=== PATIENT | male | born 1940 | race Caucasian/White ===

== ENCOUNTER 2022-03-01 16:28 | Emergency (ER) | payer MEDICARE, OTHER, SELFPAY ==
[2022-03-01 16:30] VITALS: BP 88/55; PULSE 72; RESP 14; TEMP 36.3; O2SAT 96
[2022-03-01 17:02] VITALS: BP 83/57; PULSE 71; RESP 16; O2SAT 97
--- NOTE | 2022-03-01 17:47 | EDS_ITS ---
HPI History of Present Illness Chief Complaint: Weakness Informant: patient and family Narrative Narrative: Brought in by EMS from the [facility] the [facility] for near syncopal episodes. He has been at the [facility] the [facility] last 2 days. He ambulates without assistance. States yesterday a lot ambulate lesion increasing weakness today more fatigued therefore was more using a wheelchair for transport able to get up and move around. Around 3 PM sitting noted changes to vision with varus and lightheaded symptoms there is no chest pains or shortness of breath. Chronic cough with productive sputum with asthma history no tobacco history no home oxygen. No urinary symptoms. No recent vomiting or diarrhea. States last 2 days and not drink much water. He does have cardiac history with bypass along with paroxysmal A. fib with cardiac ablation in the past. Currently symptoms resolved. Prior similar symptoms: No PFSH PFSH Medical History A-fib Acid reflux Asthma Hernia History of prostate cancer Hypertension Allergy/AdvReac Type Severity Reaction Status Date / Time No Known Allergies Allergy Verified 03/01/22 16:29 Surgical History History of hernia repair History of prior ablation treatment History of sinus surgery Status post double vessel coronary artery bypass Social History Smoking Status: Former smoker ROS ROS ED Constitutional Constitutional ED: Denies chills, fever(s) or sweats Eyes Eyes: Denies change in vision ENT ENT ED: Denies dysphagia or sore throat Cardiovascular Cardiovascular: Reports other Details: Lightheaded symptoms ; Denies chest pain, leg edema, palpitations or racing heartbeat Respiratory/Chest Respiratory/Chest: Denies cough, dyspnea or dyspnea on exertion Gastrointestinal Gastrointestinal: Denies abdominal pain, diarrhea, nausea or vomiting Genitourinary Genitourinary ED: Denies dysuria, hematuria or urinary frequency Musculoskeletal Musculoskeletal: Denies back pain, extremity pain or neck pain Integumentary Denies rash or wounds Neurologic Neurologic: Denies headache(s), paresthesias or weakness EXAM Physical Exam Const Vital Signs: 03/01/22 16:30 03/01/22 17:02 03/01/22 17:06 Temperature 97.4 F L Temperature Source Temporal Pulse Rate 72 71 Respiratory Rate 14 16 Respiratory Effort Normal Respiratory Pattern Normal Blood Pressure 88/55 L 83/57 L Blood Pressure Mean 66 65 Pulse Ox 96 97 Oxygen Delivery Method Room Air Room Air 03/01/22 20:27 03/01/22 20:28 Temperature Temperature Source Pulse Rate 74 74 Respiratory Rate 16 16 Respiratory Effort Respiratory Pattern Blood Pressure 91/67 91/67 Blood Pressure Mean 75 Pulse Ox 97 97 Oxygen Delivery Method Room Air Positive well nourished and well developed General Appearance ED: well developed and NAD HEENT HEENT Narrative: Mild dry mucosal membranes. normocephalic and atraumatic Eyes PERRL, EOMs intact bilaterally and conjunctivae normal General Eye ED: Yes normal appearance of both eyes Neck no lymphadenopathy and supple General: Negative for tenderness Chest Wall Chest: Negative for tenderness Resp normal respiratory effort and normal air movement Effort and Inspection: symmetric chest movement; Negative for respiratory distress Cardio regular rate, regular rhythm and no murmurs Peripheral Pulses: pulses 2+ throughout GI normal to inspection, nondistended, normoactive bowel sounds and non-tender Palpation: Negative for guarding or rebound tenderness present Back/Spine no CVA tenderness and no thoracic nor lumbar tenderness Extremity normal to inspection General Extremety ED: Negative for edema or tenderness General Extremity: Negative for edema Neuro oriented x3 and no sensory deficits noted Sensorium / Orientation: awake and alert Skin no rashes or lesions noted and no wounds MDM MDM MDM Narrative Medical decision making narrative: Patient nontoxic slight dry mucosal membranes. History of being out all day decreased p.o. intake concerns for orthostatic near syncope. Is given IV fluids. Laboratory studies were checked. He is feeling better on reevaluation. He ambulated department with no issues. Discussed continuing oral fluids for hydration. Follow-up as an outpatient with return precautions. All questions were answered. 0010: Evaluate patient's record initial thought his creatinine was normal, however reevaluation noted creatinine about 2.99 with BUN of 64 potassium 4.9. There is no old for comparison in the system. I called and discussed with his spouse over the phone as he is sleeping, states he is doing well. He has not been told of any renal insufficiency in the past. I encourage continued oral fluids over the next day. They leave back home to [place] on Wednesday. Discussed monitoring for worsening symptoms or decreased urine output. Discussed for recurrent symptoms to return back to the ED. Otherwise if feeling fine he can have his labs rechecked when he gets back home. Discussed the values and numbers with the patient and spouse. All questions were answered. Lab Data Attestation: I reviewed the patient's lab results. Labs: Laboratory Results - last 24 hr 03/01/22 03/01/22 17:30 17:30 WBC 8.9 RBC 4.00 L Hgb 12.9 L Hct 39.8 L MCV 99.5 H MCH 32.3 H MCHC 32.4 RDW Std Deviation 49.1 H RDW Coeff of Opal 13.2 Plt Count 208 MPV 9.7 Immature Gran % (Auto) 1.000 H Neut % (Auto) 75.2 H Lymph % (Auto) 11.1 L Harper % (Auto) 9.0 Eos % (Auto) 3.3 Baso % (Auto) 0.4 Absolute Neuts (auto) 6.7 Absolute Lymphs (auto) 0.99 Nucleated RBC % 0 Sodium 138 Potassium 4.9 Chloride 104 Carbon Dioxide 28.0 Anion Gap 6 BUN 64 H Creatinine 2.99 H Estim Creat Clear Calc 17.81 Est GFR (MDRD) Af Amer 26 L Est GFR (MDRD) Non-Af 22 L BUN/Creatinine Ratio 21.4 H Glucose 91 Calcium 9.2 Total Bilirubin 0.40 AST 11 L ALT 28 Alkaline Phosphatase 70 Total Protein 7.1 Albumin 3.4 Globulin 3.7 Albumin/Globulin Ratio 0.9 Radiography Diagnostic Testing: Clinical Impression(s) from Imaging Studies Chest X-Ray 03/01/22 18:13 IMPRESSION: Large hiatal hernia. Electronically Signed: Mark Oneal MD at 18:21 EDT , Discharge Plan Triage Chief Complaint: Weakness ED Provider: David Jaimes Dx/Rx/DC Orders Clinical Impression: Near syncope, Dehydration, CYNTHIA (acute kidney injury) Instructions: Dehydration, ED Near-Fainting, Uncertain Cause Primary Care Provider: Care Physician,No Primary Referrals: Care Physician,No Primary [Primary Care Provider] - Activity Restrictions/Additional Instructions: Clinical dehydration. Continue oral fluids at home. Follow-up with your doctor. Return if any worsening symptoms. Disposition Disposition: Home, Self Care Discharge Date/Time: 03/01/22 20:34
[2022-03-01 17:57] LABS: Absolute Lymphocyte Count 0.99 X10^3/uL (0.83-4.51); Absolute Neutrophil Count 6.7 X10^3/uL (2.0-7.7); Basophil# 0.04 X10^3/uL; Basophil% 0.4 % (0-1); Eosinophil# 0.29 X10^3/uL; Eosinophils% 3.3 % (0-5); Hematocrit 39.8 % (40-54); Hemoglobin 12.9 g/dL (13.0-16.5); Lymphocyte # 0.99 X10^3/ul (0.83-4.51); Lymphocyte % 11.1 % (19-41); Mean Corp Hgb Conc 32.4 g/dL (32-36); Mean Corpuscular Hgb 32.3 pg (27.0-32.0); Mean Corpuscular Volume 99.5 fL (80-94); Mean Platelet Vol. 9.7 fl (6.2-12.0); NRBC Flagged by Analyzer 0 % (0-5); Neutrophil # 6.68 X10^3/uL (2.7-7.7); Neutrophil % 75.2 % (47-70); Platelet Count 208 K/mm3 (150-450); RBC Distribution Width CV 13.2 % (11.6-14.6); RBC Distribution Width SD 49.1 fl (35.1-43.9); White Blood Count 8.9 K/mm3 (4.4-11.0)
[2022-03-01] MEDS: 0.9% Normal Saline 1,000 ML 1000 ML IV (18:07)
--- NOTE | 2022-03-01 18:13 | RAD_ITS ---
STUDY: X-RAY CHEST REASON FOR EXAM: Male, 81 years old. cough TECHNIQUE: PA and lateral views of the chest. COMPARISON: None. FINDINGS: Status post median sternotomy. The lungs are clear and expanded. There is no demonstrated pleural abnormality. Normal size heart. Large hiatal hernia with an air-fluid level. Normal visualized pulmonary arteries. Normal visualized aortic arch and descending thoracic aorta. Normal visualized thoracic spine. Normal visualized ribs, clavicles, and shoulders. There is no demonstrated abnormality of the visualized soft tissue structures of the upper abdomen. RAD/Chest PA and Lateral IMPRESSION: Large hiatal hernia. Electronically Signed: Mark Oneal MD at 18:21 EDT ,
[2022-03-01 18:15] LABS: ALB/GLOB Ratio 0.9 RATIO (0.9-2.4); AST(SGOT) 11 U/L (15-37); Alanine Aminotransfer ALT/SGPT 28 U/L (16-61); Albumin, Serum 3.4 g/dL (3.2-5.0); Alkaline Phosphatase 70 U/L (45-117); Anion Gap 6 (5-15); BUN 64 mg/dL (7-18); BUN/Creat Ratio 21.4 RATIO (10-20); Calcium,Total 9.2 mg/dL (8.5-10.1); Chloride 104 mmol/L (98-107); Creatinine, Serum 2.99 mg/dL (0.70-1.30); EST Glomerular Filtration Rate 22 mL/min (>60); Est Glom Filt Rate - Afr Amer 26 mL/min (>60); Estimated Creatinine Clearance 17.81 ml/min; Globulin 3.7 g/dL (2.2-4.2); Glucose 91 mg/dL (74-106); Potassium 4.9 mmol/L (3.5-5.1); Protein, Total 7.1 g/dL (6.4-8.2); Sodium Level 138 mmol/L (136-145)
[2022-03-01 20:27] VITALS: BP 91/67; PULSE 74; RESP 16; O2SAT 97
[2022-03-01 20:28] VITALS: BP 91/67; PULSE 74; RESP 16; O2SAT 97
== END 2022-03-01 20:34 | disposition home or self-care (01) ==
PROVIDERS: Emergency Provider Emergency Medicine; Visit Provider Emergency Medicine
DX: R55 Syncope and collapse (principal); I48.0 Paroxysmal atrial fibrillation; E86.0 Dehydration; I10 Essential (primary) hypertension; Z87.891 Personal history of nicotine dependence; R05.3 Chronic cough; Z95.1 Presence of aortocoronary bypass graft; Z85.46 Personal history of malignant neoplasm of prostate
CPT/HCPCS: 71046; 80053; 85025; 87811; 96360; 96361; 99285; J7030; A4216